=== PATIENT | female | born 1960 | race Caucasian/White ===

== ENCOUNTER 2021-11-03 14:48 | Emergency (ER) | payer SELFPAY ==
[2021-11-03 15:01] VITALS: BP 132/80; TEMP 97.8; BMI 21.2
[2021-11-03 16:59] LABS: BASO % 0.4 % (0-2.0); EOS % 0.2 % (0-4.5); HEMATOCRIT 31.5 % (32.4-45.2); HEMOGLOBIN 9.7 GM/dL (10.7-15.3); LYMPH % 17.9 % (8-40); MCHC 30.8 g/dl (32.0-36.0); MEAN CELL VOLUME 63.8 fl (80-96); MEAN PLT VOLUME 6.8 fl (7.5-11.1); MONO % 5.3 % (3.8-10.2); NEUT % 76.2 % (42.8-82.8); PLATELET COUNT 554 10^3/uL (134-434); RBC 4.94 M/mm3 (3.60-5.2); RDW 19.5 % (11.6-15.6); WHITE BLOOD COUNT 13.6 K/mm3 (4.0-10.0)
[2021-11-03 17:00] LABS: MCH 19.6 pg (25.7-33.7)
[2021-11-03 17:16] LABS: ANISOCYTOSIS 3+; MACROCYTOSIS 0; TEAR DROP CELLS 1+
[2021-11-03 17:28] LABS: ALBUMIN 3.3 g/dl (3.4-5.0); BLOOD UREA NITROGEN 25.4 mg/dL (7-18); CALCIUM 8.7 mg/dL (8.5-10.1)
[2021-11-03 17:32] LABS: BILIRUBIN,TOTAL 0.2 mg/dL (0.2-1); CREATININE 0.9 mg/dL (0.55-1.3); TOT PROT 6.9 g/dl (6.4-8.2)
[2021-11-03] MEDS ORDERED: diazePAM 5 MG TABLET PO ONE (18:12)
[2021-11-03] MEDS ORDERED: FAMOTIDINE 20 MG TABLET PO ONE (18:13)
[2021-11-03] MEDS ORDERED: FAMOTIDINE 20 MG TABLET ONE (18:20)
[2021-11-03] MEDS ORDERED: diazePAM 5 MG TABLET ONE (18:20)
[2021-11-03] MEDS ORDERED: SODIUM CHLORIDE 500 ML IV STA (19:19)
[2021-11-03] MEDS ORDERED: HALOPERIDOL LACTATE 5 MG/ML IM ONE ×2 (19:22→19:31)
[2021-11-03] MEDS ORDERED: HALOPERIDOL LACTATE 5 MG/ML ONE (19:33)
[2021-11-03 20:37] VITALS: PULSE 84
[2021-11-03] MEDS ORDERED: ACETAMINOPHEN 500 MG TABLET (FP) PO ONE (23:20)
[2021-11-03] MEDS ORDERED: ACETAMINOPHEN 325 MG TABLET (FP) ONE (23:27)
== END 2021-11-03 23:32 | disposition home or self-care (01) ==
LOC: JER 14:48
PROC: 3E0233Z Introduction of Anti-inflammatory into Muscle, Percutaneous Approach (ICD-10-PCS; principal; 2021-11-03)
PROC: 3E0337Z Introduction of Electrolytic and Water Balance Substance into Peripheral Vein, Percutaneous Approach (ICD-10-PCS; 2021-11-03)
DX: R07.9 Chest pain, unspecified (principal)
CPT/HCPCS: 36415; 71046-TC-FY; 71275-TC; 80053; 84484; 85025; 93005; 93010; 99285-25; Q9967

== ENCOUNTER 2021-11-23 01:30 | Emergency (ER) | payer OTHER ==
[2021-11-23] MEDS ORDERED: predniSONE 20 MG TABLET (UD) PO ONE (01:59)
[2021-11-23] MEDS ORDERED: ALBUTEROL SO4 2.5/IPRATROPIUM 0.5 INH SOL 3 ML VIAL.NEB. NEB ONE (02:00)
[2021-11-23 02:14] VITALS: BP 100/89; PULSE 98; BMI 21.2
[2021-11-23 02:19] VITALS: TEMP 97.7
[2021-11-23] MEDS ORDERED: predniSONE 20 MG TABLET (UD) ONE (05:33)
[2021-11-23] MEDS ORDERED: ALBUTEROL SO4 2.5/IPRATROPIUM 0.5 INH SOL 3 ML VIAL.NEB. NEB SCH (06:00)
== END 2021-11-23 06:36 | disposition home or self-care (01) ==
LOC: JER 01:30
DX: J44.1 Chronic obstructive pulmonary disease with (acute) exacerbation (principal)
CPT/HCPCS: 71045-TC-FY; 93005; 93010; 99284-25

== ENCOUNTER 2022-03-12 14:22 | Observation (INO) | payer OTHER ==
[2022-03-12 14:30] VITALS: BMI 21.2
[2022-03-12 17:33] LABS: BASO % 0.7 % (0-2.0); EOS % 0.9 % (0-4.5); HEMATOCRIT 26.9 % (32.4-45.2); HEMOGLOBIN 8.5 GM/dL (10.7-15.3); LYMPH % 29.6 % (8-40); MCH 20.1 pg (25.7-33.7); MCHC 31.6 g/dl (32.0-36.0); MEAN CELL VOLUME 63.4 fl (80-96); MEAN PLT VOLUME 7.1 fl (7.5-11.1); MONO % 6.9 % (3.8-10.2); NEUT % 61.9 % (42.8-82.8); PLATELET COUNT 390 10^3/uL (134-434); RBC 4.24 M/mm3 (3.60-5.2); RDW 23.2 % (11.6-15.6); WHITE BLOOD COUNT 7.7 K/mm3 (4.0-10.0)
[2022-03-12 17:52] LABS: ANISOCYTOSIS 3+; MACROCYTOSIS 0
[2022-03-12 17:58] LABS: CALCIUM 8.8 mg/dL (8.5-10.1)
[2022-03-12 17:59] LABS: ALBUMIN 3.5 g/dl (3.4-5.0); BLOOD UREA NITROGEN 18.9 mg/dL (7-18)
[2022-03-12 18:02] LABS: CREATININE 0.6 mg/dL (0.55-1.3)
[2022-03-12 18:03] LABS: TOT PROT 6.6 g/dl (6.4-8.2)
[2022-03-12 18:04] LABS: BILIRUBIN,TOTAL 0.2 mg/dL (0.2-1)
[2022-03-12] MEDS ORDERED: ALBUTEROL SO4 2.5/IPRATROPIUM 0.5 INH SOL 3 ML VIAL.NEB. NEB ONE (22:20)
[2022-03-12 23:53] LABS: EPI CELLS 7 /uL (0-25.1); HYALINE CASTS 0 /uL (0-3.1); URINE APPEARANCE CLEAR; URINE BACTERIA 2562 /uL (0-1359); URINE BILIRUBIN NEGATIVE (NEGATIVE); URINE COLOR YELLOW; URINE GLUCOSE (UA) NEGATIVE (NEGATIVE); URINE KETONE NEGATIVE (NEGATIVE); URINE LEUK ESTERASE TRACE (NEGATIVE); URINE NITRITE NEGATIVE (NEGATIVE); URINE PROTEIN NEGATIVE (NEGATIVE); URINE RBC 11 /uL (0-23.9); URINE UROBILINOGEN 0.2 mg/dL (0.2-1.0); URINE WBC 21 /uL (0-25.8)
[2022-03-13 00:01] LABS: METHADONE, UR NEGATIVE (NEGATIVE)
[2022-03-13 00:02] LABS: COCAINE, UR NEGATIVE (NEGATIVE); URINE AMPHETAMINES NEGATIVE (NEGATIVE); URINE BARBITURATES NEGATIVE (NEGATIVE)
[2022-03-13 00:07] LABS: OPIATES, URI NEGATIVE (NEGATIVE); PHENCYCLIDINE,URINE NEGATIVE (NEGATIVE); URINE BENZODIAZEPINES NEGATIVE (NEGATIVE)
[2022-03-13 02:00] VITALS: PULSE 80
[2022-03-13 06:43] LABS: HEMATOCRIT 26.7 % (32.4-45.2); HEMOGLOBIN 8.3 GM/dL (10.7-15.3); MCHC 31.1 g/dl (32.0-36.0); MEAN CELL VOLUME 63.2 fl (80-96); MEAN PLT VOLUME 8.5 fl (7.5-11.1); PLATELET COUNT 381 10^3/uL (134-434); RBC 4.23 M/mm3 (3.60-5.2); RDW 22.9 % (11.6-15.6); WHITE BLOOD COUNT 7.6 K/mm3 (4.0-10.0)
[2022-03-13 06:44] LABS: MCH 19.6 pg (25.7-33.7)
[2022-03-13 07:12] LABS: CALCIUM 8.3 mg/dL (8.5-10.1)
[2022-03-13 07:13] LABS: BLOOD UREA NITROGEN 13.4 mg/dL (7-18); MAGNESIUM 2.1 mg/dL (1.8-2.4)
[2022-03-13 07:16] LABS: CREATININE 0.6 mg/dL (0.55-1.3); PHOSPHOROUS 3.8 mg/dL (2.5-4.9)
[2022-03-13 07:17] LABS: BILIRUBIN,TOTAL 0.3 mg/dL (0.2-1); TOT PROT 5.7 g/dl (6.4-8.2)
[2022-03-13 07:30] VITALS: BP 141/75; RESP 16; TEMP 98.5
[2022-03-13] MEDS ORDERED: ALBUTEROL SO4 HFA INHALER IH PRN (07:36)
[2022-03-13] MEDS ORDERED: FERROUS SO4 325 MG TABLET (FP) PO SCH (08:00)
[2022-03-13] MEDS ORDERED: FERROUS SO4 325 MG TABLET (FP) ONE (08:50)
[2022-03-13] MEDS ORDERED: LISINOPRIL 5 MG TABLET ONE (08:50)
[2022-03-13] MEDS ORDERED: ENOXAPARIN NA (PORCINE) 40 MG/0.4 ML DISP.SYRIN SQ ONE (08:50)
[2022-03-13] MEDS ORDERED: BUDESONIDE/FORMETEROL FUMARATE 80/4.5 mcg INHALER IH SCH (10:00)
[2022-03-13] MEDS ORDERED: ENOXAPARIN NA (PORCINE) 40 MG/0.4 ML DISP.SYRIN SQ SCH (10:00)
[2022-03-13] MEDS ORDERED: LISINOPRIL 5 MG TABLET PO SCH ×2 (10:00→10:10)
[2022-03-13] MEDS ORDERED: ALBUTEROL SO4 HFA INHALER IH ONE (10:17)
[2022-03-13] MEDS ORDERED: FERROUS GLUCONATE 324 MG TAB (FP) PO SCH (12:00)
== END 2022-03-13 10:30 | disposition left against medical advice (07) ==
LOC: JER 14:22 → JERBED 19:11
PROVIDERS: ADMIT Internal Medicine; ATTEND Internal Medicine
PROC: 3E0F7GC Introduction of Other Therapeutic Substance into Respiratory Tract, Via Natural or Artificial Opening (ICD-10-PCS; principal; 2022-03-12)
DX: R07.89 Other chest pain (principal); J44.9 Chronic obstructive pulmonary disease, unspecified; I10 Essential (primary) hypertension; R06.02 Shortness of breath; D64.9 Anemia, unspecified; R06.2 Wheezing
CPT/HCPCS: 36415; 71046-TC-FY; 80053; 80307; 81003; 82607; 82728; 83540; 83550; 83615; 83735; 84100; 84436; 84443; 84466; 84484; 85025; 85027; 85045; 93005; 93010; 99285-25; C9803-CS; U0003; U0005

== ENCOUNTER 2022-06-15 02:39 | Emergency (ER) | payer OTHER ==
[2022-06-15 03:09] VITALS: RESP 18; BMI 21.9
[2022-06-15 03:54] LABS: BASO % 0.8 % (0-2.0); EOS % 1.5 % (0-4.5); HEMATOCRIT 28.8 % (32.4-45.2); HEMOGLOBIN 8.9 GM/dL (10.7-15.3); LYMPH % 29.1 % (8-40); MCHC 30.8 g/dl (32.0-36.0); MEAN PLT VOLUME 8.3 fl (7.5-11.1); MONO % 7.4 % (3.8-10.2); NEUT % 61.2 % (42.8-82.8); PLATELET COUNT 413 10^3/uL (134-434); RBC 4.43 M/mm3 (3.60-5.2); RDW 23.5 % (11.6-15.6)
[2022-06-15 05:23] LABS: CALCIUM 8.9 mg/dL (8.5-10.1)
[2022-06-15 05:24] LABS: ALBUMIN 3.8 g/dl (3.4-5.0); BLOOD UREA NITROGEN 22.8 mg/dL (7-18)
[2022-06-15 05:27] LABS: CREATININE 0.7 mg/dL (0.55-1.3)
[2022-06-15 05:29] LABS: BILIRUBIN,TOTAL 0.2 mg/dL (0.2-1); TOT PROT 6.8 g/dl (6.4-8.2)
[2022-06-15 05:43] VITALS: BP 135/60; PULSE 80; TEMP 97.9
[2022-06-15 10:19] LABS: ANISOCYTOSIS 3+; MACROCYTOSIS 0; OVALOCYTE 2+; PLATELET ESTIMATE INCREASED
== END 2022-06-15 06:00 | disposition home or self-care (01) ==
LOC: JER 02:39
DX: R07.9 Chest pain, unspecified (principal)
CPT/HCPCS: 0241U-QW; 36415; 71045-TC-FY; 80053; 84484; 85025; 93005; 93010; 99285-25

== ENCOUNTER 2023-07-07 20:20 | Emergency (ER) | payer OTHER ==
[2023-07-07 20:33] VITALS: BMI 21.2
[2023-07-07] MEDS ORDERED: ASPIRIN 81 MG CHEWABLE TABLETS PO ONE (22:14)
[2023-07-07] MEDS ORDERED: ACETAMINOPHEN 500 MG TABLET (FP) PO ONE (22:14)
[2023-07-07] MEDS ORDERED: ASPIRIN 81 MG CHEWABLE TABLETS ONE (22:34)
[2023-07-07] MEDS ORDERED: ACETAMINOPHEN 500 MG TABLET (FP) ONE (22:35)
[2023-07-08 00:33] LABS: BASO % 1.3 % (0-2.0); EOS % 3.3 % (0-4.5); HEMATOCRIT 25.8 % (32.4-45.2); HEMOGLOBIN 7.9 GM/dL (10.7-15.3); LYMPH % 25.6 % (8-40); MCHC 30.6 g/dl (32.0-36.0); MEAN CELL VOLUME 61.8 fl (80-96); MEAN PLT VOLUME 7.1 fl (7.5-11.1); MONO % 6.8 % (3.8-10.2); PLATELET COUNT 449 10^3/uL (134-434); RBC 4.18 M/mm3 (3.60-5.2); RDW 17.7 % (11.6-15.6); WHITE BLOOD COUNT 7.1 K/mm3 (4.0-10.0)
[2023-07-08 00:38] LABS: MCH 18.9 pg (25.7-33.7)
[2023-07-08 01:09] LABS: POTASSIUM 3.7 mmol/L (3.5-5.1)
[2023-07-08 01:11] LABS: ALBUMIN 3.1 g/dl (3.4-5.0); CALCIUM 8.9 mg/dL (8.5-10.1)
[2023-07-08 01:12] LABS: BLOOD UREA NITROGEN 17.6 mg/dL (7-18)
[2023-07-08 01:14] LABS: CREATININE 0.6 mg/dL (0.55-1.3)
[2023-07-08 01:16] LABS: BILIRUBIN,TOTAL 0.2 mg/dL (0.2-1); TOT PROT 6.4 g/dl (6.4-8.2)
[2023-07-08 02:30] VITALS: BP 110/72; PULSE 79; RESP 16; TEMP 98.5
[2023-07-08 05:47] LABS: ANISOCYTOSIS 3+; MACROCYTOSIS 0; OVALOCYTE 1+; ROULEAU 1+
== END 2023-07-08 04:15 | disposition home or self-care (01) ==
LOC: JER 20:20
DX: R07.9 Chest pain, unspecified (principal); M54.2 Cervicalgia; Z20.822 Contact with and (suspected) exposure to COVID-19
CPT/HCPCS: 0241U-QW; 36415; 71045-TC-FY; 80053; 84484; 85025; 93005; 93010; 99285-25

== ENCOUNTER 2023-08-25 07:49 | Emergency (ER) | payer OTHER ==
[2023-08-25 08:16] VITALS: BP 132/76; PULSE 90; RESP 18; TEMP 97.5; BMI 21.2
[2023-08-25] MEDS ORDERED: ACETAMINOPHEN 325 MG TABLET (FP) PO ONE (08:31)
[2023-08-25] MEDS ORDERED: LIDOCAINE 4% PATCH TP ONE ×2 (08:46→09:43)
[2023-08-25] MEDS ORDERED: CYCLOBENZAPRINE HCL 5 MG TABLET PO ONE (08:53)
[2023-08-25] MEDS ORDERED: ALBUTEROL SO4 2.5/IPRATROPIUM 0.5 INH SOL 3 ML VIAL.NEB. NEB ONE ×2 (08:53→09:42)
[2023-08-25] MEDS ORDERED: CYCLOBENZAPRINE HCL 5 MG TABLET ONE (09:43)
[2023-08-25] MEDS ORDERED: ACETAMINOPHEN 325 MG TABLET (FP) ONE (09:43)
[2023-08-25] MEDS ORDERED: IBUPROFEN 600 MG TABLET (FP) PO ONE ×2 (12:25→12:30)
[2023-08-25] MEDS ORDERED: LIDOCAINE PATCH REMOVAL MC SCH (22:00)
== END 2023-08-25 12:58 | disposition home or self-care (01) ==
LOC: JER 07:49
DX: R07.89 Other chest pain (principal); M54.2 Cervicalgia
CPT/HCPCS: 71046-TC-FY; 84484; 93005; 93010; 99285-25

== ENCOUNTER 2024-05-10 19:14 | Emergency (ER) | payer OTHER ==
[2024-05-10 19:25] VITALS: BP 144/66; PULSE 93; RESP 18; TEMP 97.7; BMI 21.2
[2024-05-10] MEDS: IBUPROFEN 600 MG TABLET (FP) PO ONE (20:17)
[2024-05-10] MEDS ORDERED: IBUPROFEN 600 MG TABLET (FP) PO ONE (20:17)
== END 2024-05-10 21:16 | disposition home or self-care (01) ==
LOC: JERFT 19:14 → JER 19:14 → JERFT 21:16
DX: M79.661 Pain in right lower leg (principal); M79.662 Pain in left lower leg
CPT/HCPCS: 99283-25

== ENCOUNTER 2024-09-09 22:33 | Emergency (ER) | payer OTHER ==
[2024-09-09 22:43] VITALS: BP 130/78; PULSE 98; RESP 24; TEMP 97.5; BMI 21.2
[2024-09-09] MEDS ORDERED: ACETAMINOPHEN 325 MG TABLET (FP) ONE (23:25)
[2024-09-09 23:59] LABS: BASO % 0.9 % (0-2.0); EOS % 2.8 % (0-4.5); HEMATOCRIT 32.3 % (32.4-45.2); HEMOGLOBIN 10.2 GM/dL (10.7-15.3); LYMPH % 32.5 % (8-40); MCH 22.3 pg (25.7-33.7); MCHC 31.7 g/dl (32.0-36.0); MEAN CELL VOLUME 70.4 fl (80-96); MEAN PLT VOLUME 8.1 fl (7.5-11.1); MONO % 5.5 % (3.8-10.2); NEUT % 58.3 % (42.8-82.8); PLATELET COUNT 296 10^3/uL (134-434); RBC 4.58 M/mm3 (3.60-5.2); RDW 29.2 % (11.6-15.6); WHITE BLOOD COUNT 4.7 K/mm3 (4.0-10.0)
[2024-09-10] MEDS: ACETAMINOPHEN 500 MG TABLET (FP) PO ONE (00:09)
[2024-09-10 00:30] LABS: POTASSIUM 3.7 mmol/L (3.5-5.1)
[2024-09-10 00:32] LABS: ALBUMIN 3.5 g/dl (3.4-5.0); CALCIUM 8.5 mg/dL (8.5-10.1)
[2024-09-10 00:36] LABS: CREATININE 0.7 mg/dL (0.55-1.3)
[2024-09-10 00:37] LABS: BILIRUBIN,TOTAL 0.2 mg/dL (0.2-1); TOT PROT 6.5 g/dl (6.4-8.2)
[2024-09-10 01:20] LABS: ANISOCYTOSIS 2+; MACROCYTOSIS 0; OVALOCYTE 1+
== END 2024-09-10 06:11 | disposition home or self-care (01) ==
LOC: JER 22:33
DX: R07.89 Other chest pain (principal)
CPT/HCPCS: 36415; 80053; 84484; 85025; 93005; 93010; 99284-25

== ENCOUNTER 2024-09-10 19:46 | Emergency (ER) | payer OTHER ==
[2024-09-10 19:52] VITALS: BP 134/84; PULSE 86; RESP 18; TEMP 97.3; BMI 21.2
[2024-09-10 22:29] LABS: HEMATOCRIT 32.2 % (32.4-45.2); HEMOGLOBIN 10.3 G/dL (10.7-15.3); MCH 23.1 pg (25.7-33.7); MEAN CELL VOLUME 72.2 fl (80-96); MEAN PLT VOLUME 8.8 fl (7.5-11.1); PLATELET COUNT 296.3 10^3/uL (134-434); RBC 4.46 10^6/uL (3.60-5.2); RDW 28.8 % (11.6-15.6); WHITE BLOOD COUNT 5.8 10^3/uL (4.0-10.8)
[2024-09-10 22:50] LABS: ALK PHOS 65 U/L (45-117); ANION GAP 10 mmol/L (4-13); BILIRUBIN,TOTAL 0.2 mg/dl (0.2-1); CALCIUM 8.8 mg/dl (8.5-10.1); CHLORIDE 106 mmol/L (98-107); CO2 25 mmol/L (21-32); CREATININE 0.6 mg/dl (0.6-1.3); GLUCOSE,RANDOM 103 mg/dl (74-106); POTASSIUM 3.8 mmol/L (3.5-5.1); SGOT/AST 16 U/L (15-37); SGPT/ALT 9 U/L (7-52); SODIUM 141 mmol/L (136-145); TOT PROT 6.1 g/dl (6.4-8.2)
[2024-09-10 22:54] LABS: PLATELET ESTIMATE ADEQUATE
== END 2024-09-11 07:59 | disposition home or self-care (01) ==
LOC: FER 19:46
DX: R07.9 Chest pain, unspecified (principal)
CPT/HCPCS: 36415; 71046-TC-FY; 80053; 84484; 85027; 93005; 99285-25